=== PATIENT | female | born 1995 | race Caucasian/White ===

== ENCOUNTER 2017-05-26 23:35 | Outpatient (CLI) | payer MEDICAID ==
[~2017-05-26] VITALS: Ht 157.5 cm; Wt 84.0 kg
[2017-05-27 00:18] VITALS: Ht 157.5 cm; Wt 84.0 kg
[2017-05-27 00:19] VITALS: BP 106/68; PULSE 92; RESP 20
[2017-05-27] MEDS ORDERED: FOLI0.8C PO (00:29)
[2017-05-27] MEDS ORDERED: DOCO100C PO (00:29)
[2017-05-27] MEDS ORDERED: PREN1TAB79 PO (00:29)
--- NOTE | 2017-05-27 01:13 | RADRPT ---
PROCEDURE: Biophysical profile. CLINICAL INDICATION: Pelvic pain. TECHNIQUE: Multiple sonographic images of the pelvis were obtained with transabdominal technique. COMPARISON: No prior studies are available for comparison. FINDINGS: There is a single living intrauterine gestation with the fetus in a vertex position. The placenta i s posterior in location, grade II. heart tones of 146 beats per minute are identified. There is normal amniotic fluid volume with an LUIS of 12.0 cm. There is no evidence of placenta previa or a bruption. breathing movements = 2 Gross body movements = 2 tone = 2 Qualitative AFV = 2 IMPRESSION: Biophysical profile 8 out of 8. .Mitesh Charles MD, MD Date Time Electronically viewed and signed by .Mitesh Charles MD, on 05/27/2017 01:13 .T/
[2017-05-27 01:40] LABS: BASOPHILS % 0.3 % (0.0-2.0); EOSINOPHILS # 0.1 10^3/ul (0.0-0.5); EOSINOPHILS % 1.2 % (0.0-7.0); HEMATOCRIT 31.8 % (37.0-47.0); HEMOGLOBIN 9.8 g/dl (12.0-16.0); LYMPHOCYTES # 2.6 10^3/ul (0.8-2.9); LYMPHOCYTES % 21.8 % (15.0-51.0); MEAN CORPUSCULAR HEMOGLOBIN 25.5 pg (29.0-33.0); MEAN CORPUSCULAR HGB CONC 30.8 g/dl (32.0-37.0); MEAN CORPUSCULAR VOLUME 82.8 fl (82.0-101.0); MONOCYTE # 1.3 10^3/ul (0.3-0.9); MONOCYTES % 10.5 % (0.0-11.0); NEUTROPHIL # 7.8 10^3/ul (1.6-7.5); NEUTROPHILS % 65.3 % (39.0-77.0); PLATELET COUNT 284 10^3/UL (140-415); RED BLOOD COUNT 3.84 10^6/ul (4.20-5.40); RED CELL DISTRIBUTION WIDTH 14.4 % (11.5-14.5)
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
== END 2017-05-27 07:50 | disposition home or self-care (01) ==
LOC: OBT 23:35 → L-D 23:45 → OBT 05-27 07:50
PROVIDERS: ATTEND Obstetrics & Gynecology Obstetrics
DX: O9A.213 Injury, poisoning and certain other consequences of external causes complicating pregnancy, third trimester (principal); Z3A.36 36 weeks gestation of pregnancy; R10.2 Pelvic and perineal pain; V43.52XA Car driver injured in collision with other type car in traffic accident, initial encounter; Y92.410 Unspecified street and highway as the place of occurrence of the external cause
CPT/HCPCS: 76818; 85025; 85460; 86850; 86900; 86901; Z7500; G0463